=== PATIENT | male | born 1965 | race Caucasian/White ===

== ENCOUNTER 2025-11-08 08:41 | Outpatient (CLI) | payer MEDICAID ==
--- NOTE | 2025-11-09 05:57 | RADIOLOGY REPORT ---
MRI Abdomen, without IV Contrast Exam Date: 11/08/2025 09:46 AM COMPARISON: None History: CALCULUS OF GALLBLADDER W/O CHOLECYSTITIS W/O OBSTRUCTION TECHNIQUE: Multisequence multiplanar MRI images were obtained of the abomen. MRCP including 3D SPACE, Radial 2D slabs and SPACE 3D MIP images FINDINGS: Liver: Mild hepatic steatosis. 1.2 cm T2 hyperintense lesion in the posterior right hepatic dome, segment 7. Spleen: Unremarkable. Pancreas: The pancreas is normal in appearance without focal lesions. Gallbladder and ducts: Masslike thickening of the gallbladder fundus measures 2.0 cm. Diffuse dilation of the common bile duct measuring up to 1.5 cm without appreciable obstructing stone or mass. The pancreatic duct is within normal limits. Adrenal glands: Unremarkable. Kidneys: Normal enhancement without suspicious lesions or hydronephrosis. Visualized bowel: Grossly unremarkable. Vasculature: Unremarkable. Lymphadenopathy: No evidence for lymphadenopathy. Ascites: Absent. Musculoskeletal: Bone marrow signal is normal. IMPRESSION: Masslike thickening of the gallbladder fundus measuring up to 2.0 cm. This may represent gallbladder malignancy. Additional differential considerations could include impacted stones or sludge. Recommend further evaluation with right upper quadrant ultrasound. Diffuse dilation of the common bile duct measuring up to 1.5 cm without appreciable obstructing stone or mass. Clinical correlation advised. ERCP could be considered to further evaluate and to exclude possibility of small ampullary lesion or small volume sludge or stones. Mild hepatic steatosis. 1.2 cm T2 hyperintense lesion in the posterior right hepatic dome, segment 7. This is incompletely characterized on this exam and can be further evaluated with multiphase liver mass protocol MRI or CT on a nonemergent basis if clinically indicated.
== END 2025-11-08 23:59 | disposition home or self-care (01) ==
LOC: MRI02 08:41
PROVIDERS: ATTEND Physician Assistant
DX: K76.0 Fatty (change of) liver, not elsewhere classified (principal); K80.20 Calculus of gallbladder without cholecystitis without obstruction; K76.9 Liver disease, unspecified; K82.8 Other specified diseases of gallbladder
CPT/HCPCS: 74181